=== PATIENT | male | born 1985 ===

== ENCOUNTER 2016-08-04 00:38 | Emergency (ER) | payer MEDICARE, MEDICAID ==
[2016-08-04 00:39] VITALS: BMI 33.4
[2016-08-04 00:49] VITALS: PULSE 59; RESP 14; TEMP 98.5; O2SAT 100
[2016-08-04 01:46] LABS: BASO # 0.1 K/uL (0.0-0.2); BASO % 0.8 % (0.0-2.0); EOS # 0.2 K/uL (0.0-0.7); EOS % 2.3 % (0.0-4.0); HEMATOCRIT 41.2 % (35.0-51.0); LYMPH # 1.9 K/uL (1.0-4.3); LYMPH % 26.4 % (20.0-40.0); MEAN CELL VOLUME 96.3 fl (80.0-94.0); MEAN CORPUSCULAR HGB CONC 33.2 g/dL (33.0-37.0); MEAN PLATELET VOLUME 8.6 fl (7.2-11.7); MONO # 0.5 K/uL (0.0-0.8); MONO % 7.5 % (0.0-10.0); NEUT # 4.6 K/uL (1.8-7.0); RED CELL DISTRIBUTION WIDTH 13.4 % (11.5-14.5); WHITE BLOOD COUNT 7.2 K/uL (4.8-10.8)
[2016-08-04 02:10] VITALS: BP 103/61
[2016-08-04 02:11] LABS: ALCOHOL SERUM < 10 mg/dl (0-10); BLOOD UREA NITROGEN 14 mg/dl (9-20); CALCIUM 9.4 mg/dL (8.4-10.2); CARBON DIOXIDE 25 mmol/L (22-30); CHLORIDE 106 mmol/L (98-107); GFR AFRICAN-AMERICAN > 60; GLUCOSE,RANDOM 104 mg/dL (75-110); POTASSIUM 4.1 MMOL/L (3.6-5.0); SODIUM 141 mmol/l (132-148)
[2016-08-04 03:24] LABS: URINE COLOR YELLOW (YELLOW); URINE GLUCOSE (UA) NEGATIVE (Normal)
[2016-08-04 03:25] LABS: PH,URINE 6.02 (5.0-8.0); URINE BILIRUBIN NEGATIVE (NEGATIVE); URINE BLOOD NEGATIVE (NEGATIVE); URINE KETONE TRACE mg/dL (NEGATIVE)
[2016-08-04 03:26] LABS: RBC URINE 2 /hpf (0-3); URINE LEUKOCYTE ESTERASE NEGATIVE Leu/uL (Negative); URINE PROTEIN 30 mg/dL (NEGATIVE); URINE UROBILINOGEN 0.2 mg/dL (0.2-1.0); WBC URINE 2 /hpf (0-5)
[2016-08-04 03:27] LABS: URINE BACTERIA SMALL (<OCC)
--- NOTE | 2016-08-04 04:10 | ED PDOC ---
HPI: Psych/Substance Abuse Time Seen by Provider: 08/04/16 00:50 Chief Complaint (Nursing): Psychiatric Evaluation History Per: Patient History/Exam Limitations: no limitations Onset/Duration Of Symptoms: Hrs Modifying Factor(s): None Additional Complaint(s): pt. states he's hearing voices telling him to harm himself, states he's noncompliant with meds. admits to drug use yesterday. no etoh. pt. under arrest. Past Medical History Reviewed: Historical Data, Nursing Documentation, Vital Signs Vital Signs: Last Vital Signs Temp 98.5 F 08/04/16 00:46 Pulse 59 L 08/04/16 00:46 Resp 14 08/04/16 00:46 BP 103/61 08/04/16 02:05 Pulse Ox 100 08/04/16 00:46 - Medical History PMH: Asthma, Schizophrenia Denies: Diabetes, Hepatitis, HIV, HTN, Seizures, Sexually Transmitted Disease - Family History Family History: States: Unknown Family Hx - Immunization History Hx Tetanus Toxoid Vaccination: No Hx Influenza Vaccination: No Hx Pneumococcal Vaccination: No - Home Medications Home Medications: Ambulatory Orders Medication Instructions Recorded Albuterol HFA [Ventolin HFA 90 1 puff IH QID PRN #1 puff 05/31/16 mcg/actuation (8 g)] Albuterol HFA [Ventolin HFA 90 2 puff IH [id number] PRN 05/31/16 mcg/actuation (8 g)] Inhaler, Assist Devices [Space 1 each MC PRN #1 spacer 05/31/16 Chamber Plus] - Allergies Allergies/Adverse Reactions: Allergies Allergy/AdvReac Type Severity Reaction Status Date / Time No Known Allergies Allergy Verified 08/04/16 00:46 Review of Systems ROS Statement: Except As Marked, All Systems Reviewed And Found Negative Psych: Positive for: Suicidal ideation Physical Exam - Reviewed Nursing Documentation Reviewed: Yes Vital Signs Reviewed: Yes - Physical Exam Appears: Positive for: Well, Non-toxic, No Acute Distress Head Exam: Positive for: ATRAUMATIC, NORMAL INSPECTION, NORMOCEPHALIC Skin: Positive for: Normal Color, Warm, DRY Eye Exam: Positive for: EOMI, Normal appearance, PERRL ENT: Positive for: Normal ENT Inspection Neck: Positive for: Normal, Painless ROM Cardiovascular/Chest: Positive for: Regular Rate, Rhythm Respiratory: Positive for: CNT, Normal Breath Sounds Gastrointestinal/Abdominal: Positive for: Normal Exam, Bowel Sounds, Soft Back: Positive for: Normal Inspection Extremity: Positive for: Normal ROM Neurologic/Psych: Positive for: Alert, Oriented. Negative for: tread booker II-XII, Motor/Sensory Deficits, Mood/Affect - Laboratory Results Result Diagrams: 08/04/16 01:28 08/04/16 01:28 - ECG O2 Sat by Pulse Oximetry: 100 Medical Decision Making Medical Decision Making: PT. cleared by psych, medically cleared for incarceration. Disposition - Clinical Impression Clinical Impression: Schizophrenia, Adjustment disorder, Polysubstance abuse - Disposition Referrals: [facility] [Outside] Disposition: Routine/Home Disposition Time: 02:05 Condition: STABLE Additional Instructions: Patient medically and psychiatrically cleared for incarceration. Instructions: Polysubstance Abuse (ED)
== END 2016-08-04 07:21 ==
LOC: H.ER 00:38
DX: F20.9 Schizophrenia, unspecified (principal); F43.20 Adjustment disorder, unspecified; F19.10 Other psychoactive substance abuse, uncomplicated; J45.909 Unspecified asthma, uncomplicated; Z91.19 Patient's noncompliance with other medical treatment and regimen
CPT/HCPCS: 80048; 81003; 85025; 99282; G0480

== ENCOUNTER 2017-06-09 06:37 | Inpatient (IN) | payer MEDICARE, MEDICAID ==
[2017-06-09 06:37] VITALS: BMI 33.4
--- NOTE | 2017-06-09 06:45 | ED PDOC ---
Psych Transfer Clearance - Clearance Statement Clearance Statement: Reviewed vital signs, lab results and transfer papers. Patient clinically stable for psychiatric admission.
[2017-06-09 06:49] VITALS: O2SAT 97
[2017-06-09] MEDS ORDERED: Alum-Mag Hydrox-Simethicone Susp (30 mL) PO PRN (11:07)
[2017-06-09] MEDS ORDERED: DiphenhydrAMINE 50 mg/ml Inj IM PRN (11:07)
[2017-06-09] MEDS ORDERED: Magnesium Hydroxide Susp 30 ml UD PO PRN (11:07)
--- NOTE | 2017-06-09 12:16 | PCM.PSYCH ---
Initial Psychiatric Evaluation - Initial Psychiatric Evaluation Type of Admission: Voluntary Legal Status: Capacity Chief Complaint (in patient's own words): "I'm depressed." Patient's Reaction to Hospitalization: HPI: 32 year old male w/ history of schizoaffective disorder, cocaine use disorder, transferred from [facility] after he was brought there by [facility] for bizarre behavior after he was asked to leave a store and refused. Patient is a poor historian and gives limited information. He reports that he has not been compliant with his Invega Sustenna injection x 1.5 months and is unclear what dosage he took. He states that he uses cocaine only 1 time/year but had a +utox on admission. He reports that he had auditory hallucinations telling him to kill himself yesterday. He denies current AH and is able to contract for safety. He denies VH/paranoia. He is only agreeable to taking Invega at this time, despite sheet writer discussing treatment with other antipsychotics. PPHx: H/o multiple psychiatric admissions. Patient is a poor historian and does not give accurate psychiatric history. PMHx: H/o asthma, has not had an asthma attack in over 1 year SHx: +Cocaine use, smokes 1ppd (declined nicotine replacement), homeless ALL: NKDA FHx: Family h/o schizophrenia, did not specify which family member Current Medications: Active Medications Generic Name Dose Route Start Last Admin Trade Name Freq PRN Reason Stop Dose Admin Acetaminophen 650 mg 06/09/17 11:07 Tylenol 325mg Tab PO Q4 PRN Pain, moderate (4-7) Al Hydrox/Mg Hydrox/Simethicone 30 ml 06/09/17 11:07 Maalox Plus 30 Ml PO Q4 PRN Dyspepsia Diphenhydramine HCl 50 mg 06/09/17 11:07 Benadryl IM Q6 PRN Extrapyramidal S/S Unable PO Diphenhydramine HCl 50 mg 06/09/17 11:07 Benadryl PO Q6 PRN Extrapyramidal Symptoms Haloperidol 5 mg 06/09/17 11:07 Haldol PO Q4 PRN Agitation Haloperidol Lactate 5 mg 06/09/17 11:07 Haldol IM Q4 PRN Agitation, Unable to Take PO Lorazepam 2 mg 06/09/17 11:07 Ativan IM Q4 PRN Anxiety/Agitation,Unable PO Lorazepam 2 mg 06/09/17 11:07 Ativan PO Q4 PRN Anxiety/Agitation Magnesium Hydroxide 30 ml 06/09/17 11:07 Milk Of Magnesia PO HS PRN Constipation Paliperidone 6 mg 06/09/17 11:15 Invega PO DAILY SEN Past Psychiatric History - Past Psychiatric History Previous Treatment History: Inpatient Pertinent Medical Hx (Current Medical&Sleep Prob, Allergies): Allergies Allergy/AdvReac Type Severity Reaction Status Date / Time No Known Allergies Allergy Verified 06/09/17 06:39 Albuterol HFA [Ventolin HFA 90 mcg/actuation (8 g)] 1 puff IH QID PRN #1 puff Albuterol HFA [Ventolin HFA 90 mcg/actuation (8 g)] 2 puff IH [id number] PRN Inhaler, Assist Devices [Space Chamber Plus] 1 each MC PRN #1 spacer 05/31/16 Review of Systems - Psychiatric Psychiatric: Abnormal Sleep Pattern, Anhedonia, Anxiety, Auditory Hallucinations , Behavioral Changes, Depression, Difficulty Concentrating, Hopelessness, Irritability, Mood Swings, Suicidal Ideation Mental Status Examination - Personal Presentation Personal Presentation: Looks stated age - Affect Affect: Blunted - Motor Activity Motor Activity: Calm - Reliability in Providing Information Reliability in Providing Information: Poor, due to alteration in thoughts, Poor , due to altered mood - Speech Speech: Coherent - Mood Mood: Depressed - Formal Thought Process Formal Thought Process: Other (Poverty of speech) - Hallucinations/Delusions Additional comments: Denies active AH/VH/paranoia - Obsessions/Compulsions Obsessions: No Compulsions: No - Cognitive Functions Orientation: Person, Place, Situation, Time Sensorium: Alert Attention/Concentration: Attentive Estimate of Intelligence: Average Judgement: Intact, as evidence by: Insight regarding need for hospitalization Memory: Recent impaired, as evidence by: Inability to recall events of the day, Remote impaired as evidenced by: Inability to recall sig life events, Remote impaired as evidenced by: Inability to recall historical events - Risk Risk: Diminished functioning - Strength & Assets Inventory Strength & Assets Inventory: Cooperative - Limitations Limitations: Other (Homelessness, Poverty) DSM 5 DX - DSM 5 DSM 5 Diagnosis: Schizoaffective Disorder; Cocaine Use Disorder - Recommended/Plan of Treatment Treatment Recommendations and Plan of Treatment: Schizoaffective Disorder; Cocaine Use Disorder -Admit to psychiatry unit -Individual and group therapy -Psychoeducation -Start Invega 6 mg PO Daily; patient not willing to take any other medications at this time -Patient declined nicotine replacement -Hospitalist consult -Disposition planning Projected ELOS: 5-10 days Discharge Plan and Discharge Criteria: Discharge when patient is psychiatrically stable - Smoking Cessation Smoking Cessation Initiated: No Reason for not providing: Patient declined
--- NOTE | 2017-06-09 16:56 | CP.PCM.CON ---
History of Present Illness - History of Present Illness History of Present Illness: 32 yo male with history of schizoaffective DO admitted to Psyche unit because of bizarre behaviour. Review of Systems - Review of Systems All systems: reviewed and no additional remarkable complaints except (aside from those mentioned above, 12 point system review were negative by me) Past Patient History - Past Social History Smoking Status: Heavy Smoker > 10 Cigarettes Daily Alcohol: Occasional Drugs: Cocaine Home Situation {Lives}: Homeless - CARDIAC Hx Hypertension: No - PULMONARY Hx Asthma: Yes - NEUROLOGICAL Hx Seizures: No - HEMATOLOGICAL/ONCOLOGICAL Hx Human Immunodeficiency Virus (HIV): No - INTEGUMENTARY Other/Comment: tatoos to both upper extrremities - GENITOURINARY/GYNECOLOGICAL Hx Sexually Transmitted Disorders: No - PSYCHIATRIC Hx Depression: Yes Hx Schizophrenia: Yes Hx Substance Use: Yes (Cocaine 1mo ago) - SURGICAL HISTORY Hx Surgeries: No - ANESTHESIA Hx Anesthesia: No Meds Allergies/Adverse Reactions: Allergies Allergy/AdvReac Type Severity Reaction Status Date / Time No Known Allergies Allergy Verified 06/09/17 06:39 - Medications Medications: Current Medications Acetaminophen (Tylenol 325mg Tab) 650 mg PO Q4 PRN PRN Reason: Pain, moderate (4-7) Al Hydrox/Mg Hydrox/Simethicone (Maalox Plus 30 Ml) 30 ml PO Q4 PRN PRN Reason: Dyspepsia Diphenhydramine HCl (Benadryl) 50 mg IM Q6 PRN PRN Reason: Extrapyramidal S/S Unable PO Diphenhydramine HCl (Benadryl) 50 mg PO Q6 PRN PRN Reason: Extrapyramidal Symptoms Haloperidol (Haldol) 5 mg PO Q4 PRN PRN Reason: Agitation Haloperidol Lactate (Haldol) 5 mg IM Q4 PRN PRN Reason: Agitation, Unable to Take PO Lorazepam (Ativan) 2 mg IM Q4 PRN PRN Reason: Anxiety/Agitation,Unable PO Lorazepam (Ativan) 2 mg PO Q4 PRN PRN Reason: Anxiety/Agitation Magnesium Hydroxide (Milk Of Magnesia) 30 ml PO HS PRN PRN Reason: Constipation Paliperidone (Invega) 6 mg PO DAILY SEN Physical Exam - Constitutional Appears: No Acute Distress - Head Exam Head Exam: ATRAUMATIC - Eye Exam Eye Exam: absent: Scleral icterus - ENT Exam ENT Exam: Mucous Membranes Moist - Neck Exam Neck exam: Negative for: Meningismus - Respiratory Exam Respiratory Exam: absent: Rales, Rhonchi, Wheezes, Respiratory Distress - Cardiovascular Exam Cardiovascular Exam: REGULAR RHYTHM, +S1, +S2 - GI/Abdominal Exam GI & Abdominal Exam: Soft. absent: Tenderness - Rectal Exam Rectal Exam: Deferred - Extremities Exam Extremities exam: Negative for: pedal edema - Back Exam Back exam: NORMAL INSPECTION - Neurological Exam Neurological exam: Alert, Oriented x3 - Psychiatric Exam Psychiatric exam: Normal Affect - Skin Skin Exam: Dry, Intact Results - Vital Signs Recent Vital Signs: Last Vital Signs Temp 97.7 F 06/09/17 16:35 Pulse 78 06/09/17 16:35 Resp 18 06/09/17 16:35 BP 137/73 06/09/17 16:35 Pulse Ox 97 06/09/17 06:39 Assessment & Plan (1) Bizarre behavior Status: Acute Comment: psyche is managing
--- NOTE | 2017-06-09 17:19 | PCM.BM ---
<DubachBettina snider - Last Filed: 06/09/17 17:19> Treatment Plan Problems - Problems identified on initial assessmt Command/Auditory Hallucinations Date Initiated: 06/09/17 Time Initiated: 17:17 Assessment reference: NA Status: Active (pt verbally contracts for safety and agrees to seek staff out is voices become overwhelming.) Treatment assets and liabiliti Patient Assests: adapts well, cooperative, resourceful, self-reliant, ADL independent Patient Liabilities: live alone, financial problems, poor support system, relationship conflicts, substance abuse - Milieu Protocol Maintain good personal hygiene: daily Encourage regular showers, daily Remind patient to perform daily oral care, other Assist patient to perform ADL's (prn) Conduct patient checks and document Observation sheet: Q15 minutes Maintain personal safety: every shift Educate patient to report safety concerns to staff, every shift Monitor environment for contraband/sharps Medication safety: Monitor for expected outcome, potential side effects: every shift, Assess barriers to learning: every shift, Assess readiness for medication education: every shift Milieu Narrative: Schizoaffective Disorder; Cocaine Use Disorder -Admit to psychiatry unit -Individual and group therapy -Psychoeducation -Start Invega 6 mg PO Daily; patient not willing to take any other medications at this time -Patient declined nicotine replacement -Hospitalist consult -Disposition planning Discharge/Continuing Care - Treatment Team Participation Patient/Family/SO Statement: Schizoaffective Disorder; Cocaine Use Disorder -Admit to psychiatry unit -Individual and group therapy -Psychoeducation -Start Invega 6 mg PO Daily; patient not willing to take any other medications at this time -Patient declined nicotine replacement -Hospitalist consult -Disposition planning <Ju Escobedo - Last Filed: 06/12/17 16:21> Treatment assets and liabiliti Patient Assests: resourceful, self-reliant, ADL independent, physically healthy , negotiates basic needs, cognitively intact Patient Liabilities: live alone (homeless-refusing [facility] referral), financial problems, poor support system, relationship conflicts, substance abuse , legal issue (pt evasive when discussing legal hx) Family Contact Family involvement: Famliy/SO not involved Family contact: Patient declines to allow family contact at present - Goals for Treatment Patient goals for treatment: Patient to continue stabilization on 3NP through medication management and group/supportive therapy. Patient to be encouraged to attend groups regularly to promote self-awareness, sobriety, compliance and improve insight, coping skills and self-esteem. Patient to be provided with referral for appropriate level of aftercare to reduce risk of future hospitalizations and ensure safety in the community. Discharge/Continuing Care - Education Needs Education Needs: Patient Medication, Patient Diagnosis/Disease Process, Patient Coping Skills, Patient Anger Management skills, Patient Community resources, Patient Aftercare Safety Plan - Discharge Discharge Criteria: Tolerates medication w/o severe side effects, Free of Suicidal thoughts, Free of Homicidal thoughts, Free of paranoid thoughts, Normal sleep pattern, Ability to care for self, Reduction of target symptoms Discharge to:: [facility] - Treatment Team Participation Patient/Family/SO Statement: 06/12/17 16:21 Pt. attended tx team his morning and was more easily engaged in discussion regarding precursors to hospitalization and progress on 3NP. Pt. disclosed first being hospitalized at age 22 with [facility]. Pt. confirmed being homeless and most recently staying at [facility] skilled nursing. Pt. easily irritable and evasive when discussing hx of violence, legal issues and substance abuse, stating I dont want to talk about this anymore, I dont know what that has to do with anything, and I plead the 5th. Pt. resistant to doctors recommendations to continue takin medications orally until 3rd injection. When asked how 3NP tx team can assist pt. pt responded with skilled nursing. Hose Finisher explained that skilled nursing beds cannot be reserved but recommended referral to [facility]. Pt. stated They dont do nothing and adamantly refused referral. Pt. requested to be referred to [facility]. Hose Finisher explained that referral to [facility] will be necessary secondary to pts toxicology upon admission. Pt. ambivalent but agreeable. Pt. denied SI/HI and was able to contract for safety. Pt. denies AH/ VH. Pt. remains internally preoccupied and isolative on 3NP. Discussed with Family/SO: No Was Patient/Family/SO present at Treatment Team Meeting: Yes
[2017-06-09] MEDS: Paliperidone 6 MG ER TAB PO SCH (17:36)
[2017-06-10 08:25] LABS: BASO % 0.8 % (0.0-2.0); EOS # 0.2 K/uL (0.0-0.7); EOS % 3.8 % (0.0-4.0); HEMOGLOBIN 13.3 g/dL (12.0-18.0); LYMPH # 1.4 K/uL (1.0-4.3); LYMPH % 24.9 % (20.0-40.0); MEAN CELL VOLUME 95.4 fl (80.0-94.0); MEAN CORPUSCULAR HEMOGLOBIN 32.4 pg (27.0-31.0); MEAN PLATELET VOLUME 7.9 fl (7.2-11.7); MONO # 0.5 K/uL (0.0-0.8); NEUT # 3.6 K/uL (1.8-7.0); NEUT % 62.5 % (50.0-75.0); NRBC % 0.1 % (0.0-0.0); RBC 4.1 Mil/uL (4.40-5.90); RED CELL DISTRIBUTION WIDTH 13.4 % (11.5-14.5); WHITE BLOOD COUNT 5.7 K/uL (4.8-10.8)
[2017-06-10 08:45] LABS: ALB/GLOB RATIO 1.2 (1.0-2.1); ALBUMIN 3.7 g/dL (3.5-5.0); ALT/SGPT 32 U/L (21-72); AST/SGOT 21 U/L (17-59); BLOOD UREA NITROGEN 15 mg/dl (9-20); CALCIUM 9.1 mg/dL (8.4-10.2); GFR AFRICAN-AMERICAN > 60; GFR NON-AFRICAN AMERICAN > 60; HDL CHOLESTEROL 41 MG/DL (30-70)
[2017-06-10 08:56] LABS: LDL CHOLESTEROL 69 mg/dL (0-129)
[2017-06-10] MEDS: Paliperidone 6 MG ER TAB PO SCH (08:58)
[2017-06-10 08:59] LABS: T4 7.46 ug/dl (5.5-11.0)
--- NOTE | 2017-06-10 16:18 | PCM.PYCHPN ---
Psychiatric Progress Note - Psychiatric Progress Note Patient seen today, length of contact: pt evaluated discussed with team chart reviewed Patient Chief Complaint: I need to rest Problems Identified/Issues Discussed: pt seen in bed, guarded , evasive , paranoid and uncooperative, pt has limited insight into his illness and need for medications, appears internally preoccupied , denied command hallucinations, denied suicidal or homicidal ideations, isolative in his room and not participating in treatment DSM 5 Symptoms Update: schizoaffective disorder cocaine use disorder Medication Change: No Medical Record Reviewed: Yes Mental Status Examination - Cognitive Function Orientation: Person, Place, Situation, Time Attention: Poor Concentration: Poor Association: WNL Fund of Knowledge: Poor Decription of patient's judgement and insights: impaired insight and judgment - Mood Mood: Depressed - Affect Affect: Constricted, Blunted - Speech Speech: Soft - Formal Thought Process Formal Thought Process: Paranoia, Circumstantial, Other (Poverty of speech) Psychotic Thoughts and Behaviors: denied command hallucinations - Suicidal Ideation Suicidal Ideation: No - Homicidal Ideation Homicidal Ideation: No Goal/Treatment Plan - Goal/Treatment Plan Need for Continued Stay: Severe depression anxiety, Discharge may exacerbated symptoms Progress Toward Problem(s) and Goals/Treatment Plan: continue with invea 6mg start invega injection tomorrow to ensure compliance group and supportive therapy Estimated Date of D/C: 06/14/17
[2017-06-11] MEDS: Paliperidone 6 MG ER TAB PO SCH (08:49)
[2017-06-11] MEDS ORDERED: Paliperidone Palmitate 234 MG/1.5 ML SYR IM ONE (10:02)
--- NOTE | 2017-06-11 15:08 | PCM.PYCHPN ---
Psychiatric Progress Note - Psychiatric Progress Note Patient seen today, length of contact: pt evaluated discussed with team chart reviewed Patient Chief Complaint: I am fine Problems Identified/Issues Discussed: pt son evaluation continues to be isolative in his room, guarded , evasive , paranoid and uncooperative, pt has limited insight into his illness and need for medications, appears internally preoccupied , denied command hallucinations , denied suicidal or homicidal ideations, discussed with pt to start invega sustenna to ensure compliance, pt agreed encouraged pt to attend groups and participate in treatment DSM 5 Symptoms Update: schizoaffective disorder cocaine use disorder Medication Change: No Medical Record Reviewed: Yes Mental Status Examination - Cognitive Function Orientation: Person, Place, Situation, Time Attention: Poor Concentration: Poor Association: WNL Fund of Knowledge: Poor Decription of patient's judgement and insights: impaired insight and judgment - Mood Mood: Depressed - Affect Affect: Constricted, Blunted, Depressed - Speech Speech: Soft Additional comments: underproductive - Formal Thought Process Formal Thought Process: Paranoia, Circumstantial, Other (Poverty of speech) Psychotic Thoughts and Behaviors: pt appears internaly preoccupied. denied command hallucinations - Suicidal Ideation Suicidal Ideation: No - Homicidal Ideation Homicidal Ideation: No Goal/Treatment Plan - Goal/Treatment Plan Need for Continued Stay: Severe depression anxiety, Discharge may exacerbated symptoms Progress Toward Problem(s) and Goals/Treatment Plan: continue with invea 6mg invega sustenna 234mg Im first dose today to ensure compliance group and supportive therapy Estimated Date of D/C: 06/14/17
[2017-06-12] MEDS: Paliperidone 6 MG ER TAB PO SCH (12:37)
--- NOTE | 2017-06-12 14:09 | PCM.PYCHPN ---
Psychiatric Progress Note - Psychiatric Progress Note Patient seen today, length of contact: pt evaluated discussed with team chart reviewed Patient Chief Complaint: I do not need any more medications Problems Identified/Issues Discussed: pt evaluated with treatment team, pt continues to provide any source for collateral information, guarded , evasive , poor historian, when asked about legal history, pt reported being in correction but refused to give any further details about history of violence, or of previous legal charges, pt argumentative about medications, discussed with pt starting perphenazine and depakote,pt refused, he also reported as he took the invega injection, he would not comply with the oral invega, despite explaining to him the need to take it for three injection cycles, pt continues to present with thought blocking, continues to be internaly preoccupied, starring at times responding to internal stimuli, yet refusing any changes in his medications social studies teacher discussed with pt after care plan and possible follow up on discharge, pt reported he would refuse to follow up at [facility] pt continues to be isolative in his room, refusing to participate in treatment, refusing to attend groups showing very limited insight into his illness he denied command hallucinations, denied suicidal or homicidal ideations, DSM 5 Symptoms Update: schizoaffective disorder bipolar cannabis use disorder Medication Change: No (will try to start perphenazine) Medical Record Reviewed: Yes Mental Status Examination - Cognitive Function Orientation: Person, Place, Situation, Time Attention: Poor Concentration: Poor Association: WNL Fund of Knowledge: Poor Decription of patient's judgement and insights: impaired insight and judgment - Mood Mood: Depressed - Affect Affect: Constricted, Blunted, Depressed - Speech Speech: Soft Additional comments: underproductive - Formal Thought Process Formal Thought Process: Paranoia, Circumstantial, Other (Poverty of speech) Psychotic Thoughts and Behaviors: pt appears internaly preoccupied. denied command hallucinations - Suicidal Ideation Suicidal Ideation: No - Homicidal Ideation Homicidal Ideation: No Goal/Treatment Plan - Goal/Treatment Plan Need for Continued Stay: Severe depression anxiety, Discharge may exacerbated symptoms Progress Toward Problem(s) and Goals/Treatment Plan: continue with invea 6mg invega sustenna 234mg Im start perphenazine 2mg tid, encourage compliance with plan to cross taper with invega pt will be referred to screening as he needs more [facility] treatment, resisitant to change in medications, refusing to participate in treatment , continues to be disorganized also refusing after care Estimated Date of D/C: 06/18/17
[2017-06-13] MEDS: Paliperidone 6 MG ER TAB PO SCH (10:06)
--- NOTE | 2017-06-13 15:15 | PCM.PYCHPN ---
Psychiatric Progress Note - Psychiatric Progress Note Patient seen today, length of contact: pt evaluated discussed with team chart reviewed Patient Chief Complaint: I CAN GO TO THE SNF Problems Identified/Issues Discussed: pt evaluated , pt has been screened for involuntary admission and declined , pt continues to provide any source for collateral information, guarded , evasive , discussed with pt starting different antipsychotic yet he declined pt continues to be isolative in his room, refusing to participate in treatment, refusing to attend groups showing very limited insight into his illness he denied command hallucinations, denied suicidal or homicidal ideations, DSM 5 Symptoms Update: SCHIZOAFFECTIVE DISORDER BIPOLAR Medication Change: No (will try to start perphenazine) Medical Record Reviewed: Yes Mental Status Examination - Cognitive Function Orientation: Person, Place, Situation, Time Attention: Poor Concentration: Poor Association: WNL Fund of Knowledge: Poor Decription of patient's judgement and insights: impaired insight and judgment - Mood Mood: Depressed - Affect Affect: Constricted, Blunted, Depressed - Speech Speech: Soft - Formal Thought Process Formal Thought Process: Paranoia, Circumstantial, Other (Poverty of speech) Psychotic Thoughts and Behaviors: pt appears internaly preoccupied. denied command hallucinations - Suicidal Ideation Suicidal Ideation: No - Homicidal Ideation Homicidal Ideation: No Goal/Treatment Plan - Goal/Treatment Plan Need for Continued Stay: Severe depression anxiety, Discharge may exacerbated symptoms Progress Toward Problem(s) and Goals/Treatment Plan: coincrease invea 6mg daily and 3mg qhs invega sustenna 234mg Im Estimated Date of D/C: 06/18/17
[2017-06-13] MEDS ORDERED: Paliperidone 3 MG ER TAB PO SCH (22:00)
[2017-06-14] MEDS: Paliperidone 6 MG ER TAB PO SCH (08:42)
[2017-06-14 09:05] VITALS: BP 133/80; PULSE 78; RESP 18; TEMP 96.3
--- NOTE | 2017-06-14 13:53 | PCM.PYCHDC ---
Mental Status Examination - Mental Status Examination Orientation: Person, Place, Situation Memory: Intact Mood: Neutral Affect: Constricted Speech: Appropriate Attention: WNL Concentration: WNL Association: WNL Fund of Knowledge: WNL Formal Thought Process: No Impairment Description of patient's judgement and insight: impaired insight and judgment Psychotic Thoughts and Behaviors: pt denied perceptual disturbances, non elicited Suicidal Ideation: No Current Homicidal Ideation?: No Discharge Summary - Discharge Note Reason for Hospitalization: 32 year old male w/ history of schizoaffective disorder, cocaine use disorder, transferred from [facility] after he was brought there by [facility] for bizarre behavior after he was asked to leave a store and refused. Patient is a poor historian and gives limited information. He reports that he has not been compliant with his Invega Sustenna injection x 1.5 months and is unclear what dosage he took. He states that he uses cocaine only 1 time/year but had a +utox on admission. He reports that he had auditory hallucinations telling him to kill himself yesterday. He denies current AH and is able to contract for safety. He denies VH/paranoia. He is only agreeable to taking Invega at this time, despite underwriter mortgage loan discussing treatment with other antipsychotics. Consultations:: List each consultation separately and include: 1. Reason for request. 2. Findings. 3. Follow-up Summary of Hospital Course include:: 1. Description of specific treatment plan utilized for patients during their course of treatmen. 2. Summarize the time- course for resolution of acute symptoms and/or regressed behaviors. 3. Describe issues identified and worked on during hospitalization. 4. Describe medication utilized. 5. Describe medical problems identified and treated. 6. Reassessment of suicide risk Summary of Hospital Course: pt on admission was guarded evasive, refusing to participate in treatment and refusing any changes in medications, pt was referred to screening services for involuntary admission for medication stabilization, however was declined medication compliance was encouraged, pt was placed on inveg sustenna 234mg im , given on 06/11/2017, next dose due on 07/11/2017 oral invega dose was increased to 9mg daily pt on discharge, denied suicidal or homicidal ideations, denied command hallucinations, no reported side effects of medications, mental status on discharge, not danger to self or others follow up arranged by adoption social worker at [facility] outpatient - Final Diagnosis (DSM 5) Condition upon Discharge: GOOD DSM 5: schizoaffective disorder bipolar cocaine use disorder Disposition: HOME/ ROUTINE Follow-up Treatment Plan: coincrease invea 6mg daily and 3mg qhs invega sustenna 234mg Im Prescriptions/Medication Reconciliation: Paliperidone [Invega] 3 mg PO HS 30 Days #30 ter Paliperidone [Invega] 6 mg PO DAILY 30 Days #30 ter - Smoking Cessation Smoking Cessation Medication prescribed: No - Antipsychotic Medications Pt discharged on 2 or more routine antipsychotic medications: No
== END 2017-06-14 10:40 | disposition home or self-care (01) | DRG 885 ==
LOC: H.ER 06:37 → H.PSYCH 06:42
PROVIDERS: ADMIT Psychiatry & Neurology Psychiatry; ATTEND Psychiatry & Neurology Psychiatry
PROC: GZ51ZZZ Individual Psychotherapy, Behavioral (ICD-10-PCS; principal; 2017-06-09)
DX: F25.9 Schizoaffective disorder, unspecified (principal); J45.909 Unspecified asthma, uncomplicated; Z91.19 Patient's noncompliance with other medical treatment and regimen; F32.9 Major depressive disorder, single episode, unspecified; Z59.0 Homelessness; F12.90 Cannabis use, unspecified, uncomplicated; F14.10 Cocaine abuse, uncomplicated; F17.210 Nicotine dependence, cigarettes, uncomplicated